=== PATIENT | male | born 1975 | race Caucasian/White ===

== ENCOUNTER 2023-01-16 20:58 | Emergency (ER) | payer SELFPAY ==
[~2023-01-16] VITALS: Ht 157.5 cm; Wt 86.0 kg
[2023-01-16 23:43] LABS: BASOPHILS % 0.3 % (0.0-2.0); HEMATOCRIT. 45.2 % (42.0-52.0); HEMOGLOBIN. 15.4 g/dL (14.0-18.0); LYMPHOCYTES % 12.8 % (20.0-50.0); MEAN CORPUSCULAR HEMOGLOBIN 28.7 pg (28.0-32.0); MEAN CORPUSCULAR VOLUME 84.2 fL (80.0-94.0); MEAN PLATELET VOLUME 9.7 fl (7.4-10.4); MONOCYTES % 7.4 % (2.0-8.0); NEUTROPHILS % 78.5 % (40.0-76.0); PLATELET 135 x1000/uL (130-400); RED BLOOD CELL COUNT 5.37 mill/uL (4.7-6.1); RED CELL DISTRIBUTION WIDTH 13.9 % (11.6-14.6)
[2023-01-16 23:46] LABS: CHLORIDE 108 mEq/L (98-107)
[2023-01-16 23:56] LABS: CLARITY URINE CLEAR (CLEAR); COLOR URINE YELLOW (YELLOW); KETONES URINE TRACE (NEGATIVE); LEUKOCYTE ESTERASE URINE NEGATIVE (NEGATIVE); NITRITE URINE NEGATIVE (NEGATIVE); OCCULT BLOOD URINE NEGATIVE (NEGATIVE); PH URINE 6.5 (4.5-8.0); PROTEIN URINE NEGATIVE (NEGATIVE); SPECIFIC GRAVITY URINE 1.022 (1.005-1.030)
[2023-01-17] MEDS ORDERED: ALBUTEROL (0.083%) 2.5MG/3ML NEB HHN STA (00:01)
[2023-01-17] MEDS ORDERED: PREDNISONE 20MG TABLET PO STA (00:01)
[2023-01-17] MEDS ORDERED: IPRATROPIUM BROMIDE (0.02%) 0.5MG/2.5ML NEB HHN STA (00:01)
[2023-01-17 00:48] VITALS: PULSE 90; RESP 20; O2SAT 91
[2023-01-17 01:30] VITALS: BP 155/91; PULSE 101; RESP 16; TEMP 97.7
[2023-01-17] MEDS ORDERED: MED4 MT (01:32)
[2023-01-17] MEDS ORDERED: ALBU2.5V13 NEB (01:32)
== END 2023-01-17 01:42 | disposition home or self-care (01) ==
LOC: ER 20:58
DX: J45.901 Unspecified asthma with (acute) exacerbation (principal); Z98.890 Other specified postprocedural states
CPT/HCPCS: 80053; 81003; 85025; 84484; 36415; 94640; 99283; Z7610 ×3; J7512